=== PATIENT | male | born 1990 | race Two or more races ===

== ENCOUNTER 2018-01-14 13:44 | Emergency (ER) | payer MEDICAID, OTHER ==
[~2018-01-14] VITALS: Ht 177.8 cm; Wt 79.4 kg
[2018-01-14 13:55] VITALS: BP 141/89
== END 2018-01-14 16:28 | disposition home or self-care (01) ==
LOC: ER 13:47
DX: S93.601A Unspecified sprain of right foot, initial encounter (principal); W11.XXXA Fall on and from ladder, initial encounter; Y93.89 Activity, other specified; Y92.89 Other specified places as the place of occurrence of the external cause; Y99.8 Other external cause status
CPT/HCPCS: 73610; 73630

== ENCOUNTER 2021-07-12 03:29 | Emergency (ER) | payer MEDICAID ==
[~2021-07-12] VITALS: Ht 175.3 cm; Wt 84.4 kg
[2021-07-12] MEDS ORDERED: SODIUM CHLORIDE 0.9% 3,000 ML IV ONE (05:30)
[2021-07-12 07:31] LABS: Basophils # (auto) 0 10 ^3/uL (0-0.2); Basophils % (auto) 0.5 % (0.0-2.0); Eosinophils # (auto) 0 10 ^3/uL (0-0.8); Eosinophils % (auto) 0.2 % (0.0-7.0); Hematocrit 42.5 % (41.0-53.0); Hemoglobin 14.6 g/dL (13.5-17.5); Lymphocytes # (auto) 0.7 10 ^3/uL (0.4-5.4); Mean Corpuscular Hemoglobin 31.1 pg (28.0-32.0); Mean Corpuscular Hgb Conc. 34.4 g/dL (32.0-36.0); Mean Corpuscular Volume 90.5 fL (80.0-100.0); Monocytes # (auto) 0.4 10 ^3/uL (0-1.3); Monocytes % (auto) 5.9 % (0.0-12.0); Neutrophils % (auto) 81.4 % (37.0-80.0); Red Blood Cells 4.69 10^6/uL (4.5-5.90); Red Cell Distribution Width 13.8 % (11.8-14.3); White Blood Cell 6.2 10^3/uL (4.4-10.8)
[2021-07-12 07:32] LABS: Salicylate < 1.7 mg/dL (2.8-20.0)
[2021-07-12 07:36] LABS: Potassium 4.3 mmol/L (3.5-5.1)
[2021-07-12 07:37] LABS: Acetaminophen < 2.0 ug/mL (10-30)
[2021-07-12 07:46] LABS: Albumin 3.8 g/dL (3.4-5.0); BUN/Creatinine Ratio 23.1; Bilirubin, Total 1.6 mg/dL (0.2-1.0); Calcium 8.3 mg/dL (8.5-10.1); Magnesium 2.8 mg/dL (1.6-2.6); Total Protein 7.2 g/dL (6.4-8.2)
[2021-07-12 08:17] VITALS: BP 102/54
== END 2021-07-12 09:37 | disposition home or self-care (01) ==
LOC: EDBD 03:29 → ER 03:34
DX: F10.129 Alcohol abuse with intoxication, unspecified (principal); R41.82 Altered mental status, unspecified; Y90.6 Blood alcohol level of 120-199 mg/100 ml
CPT/HCPCS: 36415; 80053; 80320; 80329; 83735; 85025; 96360; 99283; J7030